=== PATIENT | female | born 2005 | race Caucasian/White ===

== ENCOUNTER 2024-04-28 14:11 | Emergency (ER) | payer BC, SELFPAY ==
[2024-04-28] MEDS: ZOFRAN ODT (ORALLY DISINTEGRATING) 4 MG PO (14:30)
[2024-04-28] MEDS: VENTOLIN NEBULES 2.5 MG INH (14:31)
[2024-04-28 14:33] VITALS: BP 112/81
--- NOTE | 2024-04-28 14:35 | ED.GENMED ---
History of Present Illness
General
Chief Complaint: Allergic Reaction
Source: patient and family
Exam Limitations: none
Time Seen by Provider: 04/28/24 14:19
Nursing documentation reviewed up to this point in time: agreed with
History of Present Illness
History of Present Illness:
Patient presents to ED secondary to sudden onset of tongue numbness sensation, lip swelling, 'lump in throat', itching rash on her face, neck, back, and chest, shortly after having cookies containing cashew nuts and sugar. Patient has taken 2
children's Benadryl chewable tablets, with mild relief in symptoms. Denies difficulty breathing. Denies sore throat. Denies dizziness. Denies chest pain. Patient however, has had 1 vomiting episode prior to arrival in ED. Patient denies
previous history of similar symptoms. Per parents, patient did experience 1 vomiting episode when she was younger after consuming walnuts. Subsequently, patient was evaluated by solution specialist, with results being normal.
Past History
Social History
Tobacco: Other (No secondhand smoke exposure)
Review of Systems
Review of Systems
Allergies reviewed?: Yes
All Other Systems: ROS reviewed and negative except as documented in HPI and ROS
Constitutional: Reports no symptoms
EENT: Reports other (lump in throat)
Respiratory: Reports no symptoms; Denies trouble breathing
Cardiac: Reports no symptoms; Denies chest pain
ABD/GI: Reports nausea and vomiting
: Reports no symptoms
Musculoskeletal: Reports no symptoms
Skin: Reports itching and rash
Neurological: Reports no symptoms; Denies dizzy
Phy Exam
Physical Exam
Physical Exam:
Physical Exam
General: mild distress, not acutely ill. aebrile
Head: nc/at. eomi
Neck: supple. no meningeal signs. normal posterior pharynx
Heart: s1/s2 regular rate and rhythm, no murmur. equal radial pulses.
Lungs: no acute respiratory distress. clear bilaterally
Abdomen: normal bowel sounds. not tender.
Neuro: alert and oriented. no focal neurological deficits
Skin: no rash
Psychiatric: well kept. interactive and cooperative
Extremities: no edema. no calf tenderness.
Course
Orders/Labs/Results
Orders:
Orders
04/28/24 14:24
Dexamethasone Pf [Decadron] 10 mg .ROUTE .STK-MED ONE
Diphenhydramine [Benadryl Elixir] 25 mg .ROUTE .STK-MED ONE
04/28/24 14:25
Albuterol Nebs [Ventolin Nebules] 2.5 mg .ROUTE .STK-MED ONE
Dexamethasone Pf [Decadron] 10 mg PO NOW STA
Diphenhydramine [Benadryl Solution] 25 mg PO NOW STA
04/28/24 14:27
Albuterol Nebs [Ventolin Nebules] 2.5 mg INH R NOW STA
Dexamethasone [Decadron] 10 mg PO NOW STA
Diphenhydramine [Benadryl Elixir] 25 mg TUBE NOW STA
04/28/24 14:28
Ondansetron Orally Disint [Zofran Odt (Orally Disintegrating)] 4 mg PO NOW STA
04/28/24 14:30
Ondansetron Orally Disint [Zofran Odt (Orally Disintegrating)] 4 mg .ROUTE .STK-MED ONE
Vital Signs
Initial and Last Documented VS:
Initial Vital Signs
Temp Pulse Ox
97.5 F 97
04/28/24 14:12 04/28/24 14:12
Last Documented Vital Signs
Temp Pulse Resp BP Pulse Ox
97.5 F 77 12 101/72 99
04/28/24 14:12 04/28/24 16:15 04/28/24 16:15 04/28/24 16:00 04/28/24 16:15
MDM/Problems Addressed
MDM/Problems Addressed:
Patient with significant improvement symptoms after treatment. Patient otherwise is afebrile, hemodynamically stable, speaking full sentences, and without any respiratory distress, at time of discharge, to the care of her family. Patient will be
given prescription for EpiPen, to be available at all times. Patient and family will follow-up with an solution specialist upon discharge.
*Critical Care Note
Total Time (30-74mins, 75-104mins- exclusive of procedures): Not Applicable
ED Attending Note
-
Portions of this chart may have been created with voice recognition software.� Occasional wrong word or��sound alike� substitutions may have occurred due to the inherent limitations of voice recognition software.
Discharge Plan
Departure
Patient Disposition: Home (Routine Discharge)
Date of Disposition: 04/28/24
Time of Disposition: 16:12
Patient with high blood pressure during this ER visit?: No
Condition: Good
Discharge Problem:
Allergic reaction
Instructions: Allergic Reaction ED
Prescriptions:
New
epinephrine [EpiPen 2-He] 0.3 mg/0.3 mL auto-injector
0.3 mg IM ONCE Qty: 2 0RF
No Action
ondansetron 4 MG tablet,disintegrating
4 mg PO QIDPRN PRN (Reason: nausea/vomiting) Qty: 20 0RF
Referrals:
Kali Campbell MD [Family Provider] -
Ronald Gutiérrez MD [Community] -
Activity Restrictions/Additional Instructions:
As discussed, please follow-up with your primary care physician and/or referred solution specialist for further evaluation and treatment. Your prescription has been sent electronically to [facility] pharmacy in [place].
Interventions
Interventions:
*Risk Screen - Suicide Last Done: 04/28/24 14:12
*General Assessment Last Done: 04/28/24 14:30
*Neglect/Abuse Screening Last Done: 04/28/24 14:12
ED- Fall Risk Assessment Last Done: 04/28/24 14:30
*Nursing Disposition Last Done: 04/28/24 16:32
ED- Cardiac Assessment Last Done: 04/28/24 14:30
ED- Pulmonary Assessment Last Done: 04/28/24 14:30
ED-Skin Assessment Last Done: 04/28/24 14:30
Discharge Date and Time
Discharge Date/Time: 04/28/24 16:32
Print Language: CAMBODIAN
[2024-04-28] MEDS: BENADRYL SOLUTION 25 MG PO (14:41)
[2024-04-28] MEDS: DECADRON 10 MG PO (14:42)
[2024-04-28 15:00] VITALS: BP 104/76
[2024-04-28 16:00] VITALS: BP 101/72
[2024-04-28 16:31] VITALS: BMI 19.2
== END 2024-04-28 16:32 | disposition home or self-care (01) ==
LOC: EMR 14:11
PROVIDERS: EMERGENCY PHYSICIAN Emergency Medicine; FAMILY PHYSICIAN Pediatrics
DX: T78.1XXA Other adverse food reactions, not elsewhere classified, initial encounter (principal); X58.XXXA Exposure to other specified factors, initial encounter
CPT/HCPCS: 99283; 94640